=== PATIENT | female | born 1965 | race Caucasian/White ===

== ENCOUNTER 2023-06-05 10:49 | Emergency (ER) | payer MEDICAID, SELFPAY ==
[2023-06-05 10:52] VITALS: BP 130/76; PULSE 76; RESP 18; TEMP 36.6; O2SAT 97
--- NOTE | 2023-06-05 11:11 | ED.GENADUL_ITS ---
Discharge Plan Disposition Patient Disposition: Home Discharge Details Clinical Impression: Paronychia of finger Primary Care Provider: Gio Yañez ED Provider: Jigar Tay Home Meds and New Rx's Prescriptions: No Action fexofenadine [Юлия] 180 mg Tablet 360 mg PO DAILY fluticasone propion-salmeterol [Advair Diskus] 500-50 mcg/dose Blister With Device 2 inh INHALATION DAILY albuterol 90 mcg/actuation Aerosol 90 mcg INHALATION DAILY epinephrine [Epi E-Z Pen] 0.3 mg/0.3 mL Auto-Injector See Rx Instructions .ROUTE .COMPLEX Rx Instructions: As needed Discharge Instructions Instructions: Paronychia (ED) Additional Instructions: Please continue with the soaks. Please continue with the antibiotic. You may take Tylenol or Motrin if you have pain. Medical Decision Making Patient presents with large paronychia right thumb. The performed patient feels better. Patient instructed to continue taking the antibiotic prescribed by her PCP HPI General Date/Time Provider Initiated Documentation: 06/05/23 11:11 . HPI Narrative: Patient presents to the emergency department with a large paronychia that has been treated with antibiotics and soaks by primary care doctor for the past week and a half. Initially with Bactrim now on Doxy. She was last seen on states that the finger was swollen with pus collection at the base of the nail. The finger affected the thumb on the right. She states that she pulled on a hangnail approximately 2 weeks ago. No fevers no chills. Patient is diabetic with adequate control. Related Data Home Medications Medication Instructions Recorded Confirmed albuterol 90 mcg/actuation aerosol 90 mcg inhalation DAILY 06/05/23 06/05/23 inhaler epinephrine 0.3 mg/0.3 mL See Rx Instructions .Route .COMPLEX 06/05/23 06/05/23 injection, auto-injector fexofenadine 180 mg tablet 360 mg PO DAILY 06/05/23 06/05/23 fluticasone 500 mcg-salmeterol 50 2 inh inhalation DAILY 06/05/23 06/05/23 mcg/dose blistr powdr for inhalation (Advair Diskus) Allergies Allergy/AdvReac Type Severity Reaction Status Date / Time amoxicillin AdvReac Severe Hives Unverified 06/05/23 10:58 ampicillin AdvReac Severe Hives Unverified 06/05/23 10:58 Penicillins AdvReac Severe Hives Unverified 06/05/23 10:58 General Stated Complaint: Cellulitis NILESH: 3 Review of Systems Narrative: 10 point review of system is negative unless otherwise specified in the HPI PFSH All Active Problems (Updated 06/05/23 @ 11:18 by Jigar Tay MD) Paronychia of finger (Acute) Social History Smoking/Tobacco Use Status: Never Smoking risk assessment performed?: Yes Alcohol Intake: never Substance use type: does not use Do you feel safe at home: Yes Do you feel safe in your relationship?: Yes Exam Narrative Exam Narrative: General: A,A Ox3, Calm, no apparent distress, well developed, pleasant and cooperative Head Size/Shape: normocephalic, atraumatic Eyes Pupils: PERRLA Extraocular Mobility: intact and symmetrical Conjunctiva: non-injected, anicteric, no discharge Ears, Nose, Throat Nares: patent bilaterally Oral Cavity: moist Respiratory Effort: no dyspnea Normal cap refill Abdomen Joints, Bones, and Muscles: no deformities Extremities: warm and well-perfused, no cyanosis, capillary refill <2 seconds Skin Skin Inspection: Right thumb. Large paronychia. Mild cellulitic changes. Neurological Motor: normal tone, normal strength, moving all extremities equally Psychiatric: good insight, good judgement, normal mood and affect Course Vital Signs Vital signs: Vital Signs Temperature 36.6 C 06/05/23 10:52 Pulse 76 06/05/23 10:52 Respiratory Rate 18 06/05/23 10:52 Blood Pressure 130/76 06/05/23 10:52 Pulse Oximetry 97 06/05/23 10:52 Temperature 36.6 C 06/05/23 10:52 Temperature Source Oral 06/05/23 10:52 Pulse 76 06/05/23 10:52 Respiratory Rate 18 06/05/23 10:52 Respiratory Effort Normal 06/05/23 11:02 Blood Pressure 130/76 06/05/23 10:52 Blood Pressure Position Sitting 06/05/23 10:52 Pulse Oximetry 97 06/05/23 10:52 Oxygen Delivery Method Room Air 06/05/23 10:52 Oxygen Flow Rate 0 06/05/23 10:52 Pain Level 10 06/05/23 10:52 Procedures Abscess I/D Site: Hand Side (if applicable): Right Technique: Incised with #11 Blade (Small incision was made for the large pus collection. Anesthesia was not required. Large amount of pus was drained. Patient thumb soaked.) Amount of fluid expressed (mL): 4 Irrigation: Yes Packing used?: None
[2023-06-05 11:37] VITALS: BP 150/88; PULSE 66; RESP 20; TEMP 36.6; O2SAT 99
== END 2023-06-05 11:40 | disposition home or self-care (01) ==
PROVIDERS: Emergency Provider Emergency Medicine; PCP Nurse Practitioner Family
DX: L03.011 Cellulitis of right finger (principal); E11.9 Type 2 diabetes mellitus without complications
CPT/HCPCS: 10060; 99283